=== PATIENT | female | born 1955 | race Caucasian/White ===

== ENCOUNTER 2016-08-24 13:04 | Outpatient (CLI) | payer OTHER ==
[~2016-08-24 13:04] MED LIST: ALBUTEROL HFA60 DOSE IN; CARISOPRODOL350 MG PO; CITALOPRAM HYDR20 MG PO; FOLIC ACID1 MG PO; HYDROXYZINE HCL25 MG PO; LEVOFLOXACIN500 MG PO; METHADONE HCL10 MG PO; METHOTREXATE SOD; METHOTREXATE25 MG/ML; METOPROLOL TART25 MG PO; NORCO1 TAB PO; PREDNISONE10 MG PO; QVAR80 MCG IN; VITAMIN B-1250 MCG PO
--- NOTE | 2016-08-24 15:12 | DIAGNOSTIC IMAGING REPORT ---
PROCEDURE: MR BRAIN W/WO CONTRAST INDICATION: FAM HX CEREBRAL ANEURYSM,BOTELLO TECHNIQUE: T1 sagittal and T2 coronal images. T1, T2, FLAIR, gradient, and diffusion axial images of the brain. Following 10 ml of intravenous gadolinium, FAT-SAT T1 sagittal, axial and coronal images were obtained. COMPARISON: None. FINDINGS: Sulci and ventricular system are normal. Minor white matter chronic ischemic changes. There is no acute CVA, hemorrhage, mass or midline shift. No abnormal parenchymal enhancement. Normal vascular flow voids. Orbits are unremarkable. Paranasal sinuses and the left mastoid are clear. Partial opacification of the right mastoid air cells. IMPRESSION: 1. Minor age appropriate white matter chronic ischemic changes 2. Right mastoid air cell partial opacification. Consider mastoiditis.
--- NOTE | 2016-08-24 15:18 | DIAGNOSTIC IMAGING REPORT ---
PROCEDURE: MRA HEAD WITHOUT CONTRAST INDICATION: FAM HX CEREBRAL ANEURYSM,BOTELLO TECHNIQUE: Thin-cut gradient axial images with 3D MIP reconstructions in sagittal, axial, and coronal projections. COMPARISON: Brain MRI 08/24/2016. FINDINGS: Anterior circulation: Vessels have a normal caliber without evidence of aneurysm, stenosis or occlusion. Posterior circulation: Vessels have a normal caliber without evidence of aneurysm, stenosis or occlusion. Bilateral patent posterior communicating arteries are present. IMPRESSION: 1. No evidence of an aneurysm.
== END 2016-08-24 23:00 ==
LOC: MRI SRH 13:04
DX: R51 Headache (principal); Z82.49 Family history of ischemic heart disease and other diseases of the circulatory system